=== PATIENT | female | born 1990 | race Caucasian/White ===

== ENCOUNTER → 2025-05-03 | Outpatient (CLI) | payer BC, SELFPAY ==
--- NOTE | 2025-05-03 10:04 | ECHOD_ITS ---
Reason For Study Reason For Study: CHEST PAIN Procedure This was a 2D Doppler, Color Flow transthoracic echocardiogram. The patient is in sinus rhythm. Exam performed in department. Left Ventricle Normal size and thickness. The left ventricular ejection fraction is 65 %. Normal diastololic function. Right Ventricle Normal right ventricle. Atria The left and right atria are normal. Mitral Valve Trivial mitral valve insufficiency. Tricuspid Valve Trivial tricuspid valve insufficiency. Unable to estimate RV systolic pressure due to insufficient tricuspid regurgitant envelope. Aortic Valve Trisinus/trileaflet aortic valve. Pulmonic Valve The pulmonic valve is not well visualized. Trivial pulmonic valve insufficiency. Great Vessels Normal sized aortic root. Pericardium/Pleural No pericardial effusion. MMode/2D Measurements & Calculations LVIDd: 4.3 cm IVSd: 0.69 cm LVOT diam: 2.0 cm LVIDs: 3.0 cm LVPWd: 0.72 cm LVOT area: 3.0 cm2 RVDd: 3.2 cm FS: 29.2 % Ao root diam: 2.8 cm LAV(MOD-bp): 22.5 ml LVAd ap4: 23.4 cm2 LAV(MOD-bp) Indexed: 12.7 ml/m2 LVLd ap4: 7.7 cm LAV(MOD-sp2): 24.2 ml EDV(MOD-sp4): 59.6 ml LAV(MOD-sp4): 20.3 ml EDV(sp4-el): 60.5 ml LVAs ap4: 12.8 cm2 LVLs ap4: 6.4 cm ESV(MOD-sp4): 22.1 ml ESV(sp4-el): 21.8 ml EF(MOD-sp4): 62.9 % EF(sp4-el): 64.0 % LVAd ap2: 22.5 cm2 SV(MOD-sp4): 37.5 ml LVLd ap2: 7.8 cm EDV(MOD-bp): 57.1 ml SI(MOD-sp4): 21.2 ml/m2 EDV(MOD-sp2): 53.3 ml ESV(MOD-bp): 21.7 ml EDV(sp2-el): 54.8 ml EF(MOD-bp): 62.0 % LVAs ap2: 12.8 cm2 LVLs ap2: 6.4 cm ESV(MOD-sp2): 21.4 ml ESV(sp2-el): 21.9 ml EF(MOD-sp2): 59.8 % SV(MOD-sp2): 31.9 ml SV(sp4-el): 38.7 ml Ao sinus diam: 2.4 cm SI(MOD-sp2): 18.0 ml/m2 Ao ST [place]: 1.8 cm LA A4 area: 10.6 cm2 LA dimension(2D): 2.7 cm RA A4 area: 10.7 cm2 TAPSE: 1.8 cm Time Measurements MV dec time: 0.15 sec Doppler Measurements & Calculations MV E max niraj: 102.3 cm/sec Lat Peak E' Niraj: 18.5 cm/sec Med Peak E' Niraj: 14.9 cm/sec MV A max niraj: 66.4 cm/sec E/E' lat: 5.5 E/E' med: 6.9 MV E/A: 1.5 Ao V2 max: 126.6 cm/sec LV V1 max: 106.9 cm/sec MV dec slope: 662.0 cm/sec2 Ao max P.4 mmHg LV V1 max P.6 mmHg Ao V2 mean: 89.6 cm/sec LV V1 mean P.5 mmHg Ao mean P.6 mmHg LV V1 mean: 73.7 cm/sec Ao V2 VTI: 29.1 cm LV V1 VTI: 22.9 cm AV (velocity ratio): 0.79 GONZALES(I,D): 2.4 cm2 GONZALES(V,D): 2.6 cm2 SV(LVOT): 69.5 ml PA V2 max: 84.3 cm/sec ECHO/Echo Complete Interpretation Summary The left ventricular ejection fraction is 65 %. Normal diastololic function. Ordering Physician: Maurizio Castellanos Referring Physician: JUN MELGAR Performed By: Freda Gerber RDCS
== END | disposition home or self-care (01) ==
LOC: CVS 10:02
PROVIDERS: PCP Physician Assistant; Referring Provider Internal Medicine Cardiovascular Disease; Visit Provider Internal Medicine Cardiovascular Disease
DX: R07.9 Chest pain, unspecified (principal)
CPT/HCPCS: 93306